=== PATIENT | male | born 1970 | race Caucasian/White ===

== ENCOUNTER 2017-08-31 18:02 | Emergency (ER) | payer SELFPAY ==
[~2017-08-31] VITALS: Ht 165.1 cm; Wt 88.6 kg
[2017-08-31] MEDS ORDERED: KETOROLAC TROMETHAMINE 60 MG/2 ML VIAL IM ONE (20:15)
[2017-08-31 21:09] VITALS: BP 132/85
== END 2017-08-31 21:12 | disposition home or self-care (01) ==
LOC: EMS 18:04
DX: S76.011A Strain of muscle, fascia and tendon of right hip, initial encounter (principal); M54.31 Sciatica, right side; X58.XXXA Exposure to other specified factors, initial encounter; Y93.89 Activity, other specified; Y92.89 Other specified places as the place of occurrence of the external cause; Y99.8 Other external cause status
CPT/HCPCS: 73502; 96372; 99284; J1885